=== PATIENT | female | born 1950 | race Caucasian/White ===

== ENCOUNTER → 2016-12-13 | Outpatient (CLI) | payer MEDICARE, BC ==
[2016-12-13 08:39] LABS: CHLORIDE,CL 106 mmol/L (98-110); SODIUM,NA 141 mmol/L (136-146)
== END | disposition home or self-care (01) ==
LOC: MW.CHFP 07:52
PROVIDERS: ATTEND Nurse Practitioner Family
DX: E78.00 Pure hypercholesterolemia, unspecified (principal)
CPT/HCPCS: 36415; 80053; 80061; 84443

== ENCOUNTER → 2016-12-14 | Outpatient (CLI) | payer MEDICARE, BC | LOC: MW.CHFP 09:23 | PROVIDERS: ATTEND Nurse Practitioner Family | DX: Z00.00 Encounter for general adult medical examination without abnormal findings (principal); I10 Essential (primary) hypertension; E78.00 Pure hypercholesterolemia, unspecified; Z72.0 Tobacco use; Z23 Encounter for immunization | CPT/HCPCS: 36415; 86803; 90670; 99214; G0009 ==

== ENCOUNTER 2017-07-22 11:00 | Day surgery (SDC) | payer MEDICARE, BC ==
[~2017-07-22 11:00] MED LIST: Lactated Ringers 1,000 ML IV SCH
[2017-07-22] MEDS ORDERED: fentaNYL 100 MCG/2 ML SDV ONE (11:56)
[2017-07-22] MEDS ORDERED: Propofol 200 MG/20 ML SDV ONE (11:56)
[2017-07-22] MEDS ORDERED: Lidocaine 2% 5 ML SDV ONE (11:56)
[2017-07-22] MEDS ORDERED: Midazolam 1 MG/ML 2 ML SDV ONE (12:12)
--- NOTE | 2017-07-22 12:21 | PCM.PREANE ---
Preanesthetic Assessment - Anesthesia/Transfusion/Family Hx Anesthesia History: Prior Anesthesia Without Reaction Family History of Anesthesia Reaction: No Transfusion History: No Prior Transfusion(s) Intubation History: Unknown - Review of Systems General: No Symptoms Pulmonary: No Symptoms Cardiovascular: No Symptoms Gastrointestinal: No Symptoms, Other (polypectomy 5 years ago) Neurological: No Symptoms Other: Reports: None - Physical Assessment O2 Sat by Pulse Oximetry: 95 Respiratory Rate: 16 Vital Signs: Last Vital Signs Temp 36.5 C 07/22/17 12:10 Pulse 81 07/22/17 12:10 Resp 16 07/22/17 12:10 BP 118/101 H 07/22/17 12:10 Pulse Ox 95 07/22/17 12:10 Height: 1.63 m Weight: 68.946 kg ASA Class: 2 Mental Status: Alert & Oriented x3 Airway Class: Mallampati = 2 Dentition: Reports: Normal Dentition, [place](s) (x2 upper front), [place] (right upper (fixed)) Thyro-Mental Finger Breadths: 3 Mouth Opening Finger Breadths: 2 ROM/Head Extension: Limited/Partial Lungs: Clear to Auscultation, Normal Respiratory Effort Cardiovascular: Regular Rate, Regular Rhythm - Allergies Allergies/Adverse Reactions: Allergies Allergy/AdvReac Type Severity Reaction Status Date / Time No Known Allergies Allergy Verified 03/25/14 08:47 - Blood Blood Available: No - Anesthesia Plan Pre-Op Medication Ordered: None - Acknowledgements Anesthesia Type Planned: MAC Pt an Appropriate Candidate for the Planned Anesthesia: Yes Alternatives and Risks of Anesthesia Discussed w Pt/Guardian: Yes Pt/Guardian Understands and Agrees with Anesthesia Plan: Yes PreAnesthesia Questionnaire Cardiovascular History: Reports: High Cholesterol, Hypertension Gastrointestinal History: Reports: Colon Polyp Genitourinary History: Reports: None ELECTROTHERAPIST History: Reports: Musculoskeletal History: Reports: Fracture Other Musculoskeletal History: hx fx wrist - Past Surgical History Head Surgeries/Procedures: Reports: None HEENT Surgical History: Reports: Cataract Surgery, Other (See Below) Other HEENT Surgeries/Procedures: surgery for cleft palate at 3 yers of age GI Surgical History: Reports: Colonoscopy (' with single polyp found) Female Surgical History: Reports: Section (x2), Tubal Ligation - SUBSTANCE USE Smoking Status *Q: Current Every Day Smoker (08/10 ppd) Recreational Drug Use History: No - HOME MEDS Home Medications: Home Meds Ezetimibe [Zetia] 10 mg PO BEDTIME 07/20/17 [History] Lisinopril/Hydrochlorothiazide [Lisinopril-Hctz 20-25 mg Tab] 1 tab PO DAILY [History] - CURRENT (IN HOUSE) MEDS Current Meds: Current Medications Lactated Ringer's (Ringers, Lactated) 1,000 mls @ 125 mls/hr IV ASDIRECTED CONSUELO Last Admin: 07/22/17 12:09 Dose: 125 mls/hr Discontinued Medications Fentanyl (Sublimaze) Confirm Administered Dose 100 mcg .ROUTE .STK-MED ONE Stop: 07/22/17 11:57 Lidocaine (Xylocaine-Mpf 2%) Confirm Administered Dose 5 ml .ROUTE .STK-MED ONE Stop: 07/22/17 11:57 Midazolam HCl (Versed 1 Mg/Ml) Confirm Administered Dose 2 mg .ROUTE .STK-MED ONE Stop: 07/22/17 12:13 Propofol (Diprivan 20 Ml) Confirm Administered Dose 400 mg .ROUTE .STK-MED ONE Stop: 07/22/17 11:57
--- NOTE | 2017-07-22 13:22 | PCM.OPNOTE ---
- General Post-Op/Procedure Note Date of Surgery/Procedure: 07/22/17 Operative Procedure(s): Colonoscopy with biopsy ascending colon mass Pre Op Diagnosis: Personal history of colon polyps Post-Op Diagnosis: Ascending colon lipoma Anesthesia Technique: MAC (ASA II) Primary Surgeon: Jeferson Medrano Condition: Good Free Text/Narrative:: Dictation [id number] CPT CODE 82994
[2017-07-22] MEDS ORDERED: Lactated Ringers 1,000 ML IV SCH (13:30)
--- NOTE | 2017-07-22 19:06 | OR ---
SURGEON: Jeferson Medrano M.D. DATE OF PROCEDURE: 07/22/2017 OPERATION PERFORMED: Colonoscopy with biopsy of ascending colon. ANESTHESIA: MAC. ASA CLASSIFICATION: II. PREOPERATIVE DIAGNOSIS: Personal history of colon polyps. POSTOPERATIVE DIAGNOSIS: Ascending colon mass, probable lipoma. DESCRIPTION OF PROCEDURE: The patient was taken to the endoscopy room, and positioned on the endoscopy table in the left lateral decubitus position. Time-out was called for appropriate identification of the patient and procedure. Monitored anesthesia care was provided. The colonoscope was inserted into the rectum and advanced with minimal difficulty to the cecum. The cecum was identified by internal landmarks and external pressure. The colonoscope was retroflexed in the cecum to visualize the ascending colon from below, then straightened, and slowly withdrawn. The ascending colon does demonstrate what appears to be a submucosal lipoma. Biopsies of the mucosa were obtained. No significant bleeding was noted. The lesion was quite soft when biopsied. The remainder of the ascending colon, hepatic flexure, transverse colon, splenic flexure, descending colon, sigmoid colon, and rectum showed no tumors, polyps, diverticula, or angiodysplastic changes. The colonoscope, having been withdrawn to the rectum, was now retroflexed to visualize the anal orifice from above. No other tumors or polyps were seen, and there were no acute hemorrhoidal changes. The colonoscope was then straightened, the rectum aspirated, and the colonoscope removed. CONDITION: The patient tolerated the procedure well, and was taken to recovery room in stable condition. GOYO / MARYLU /[id number]
== END 2017-07-22 13:50 | disposition home or self-care (01) ==
LOC: MW.SDS 11:00
PROVIDERS: ATTEND Surgery
DX: D17.79 Benign lipomatous neoplasm of other sites (principal); E78.00 Pure hypercholesterolemia, unspecified; I10 Essential (primary) hypertension; F17.200 Nicotine dependence, unspecified, uncomplicated; Z88.8 Allergy status to other drugs, medicaments and biological substances; Z79.899 Other long term (current) drug therapy; Z98.49 Cataract extraction status, unspecified eye; Z98.51 Tubal ligation status; Z86.010 Personal history of colon polyps; Z98.890 Other specified postprocedural states; Z82.49 Family history of ischemic heart disease and other diseases of the circulatory system; Z83.3 Family history of diabetes mellitus; Z80.0 Family history of malignant neoplasm of digestive organs
CPT/HCPCS: 45380; J2250; J3010; J7120; 00810; 88305; J2704

== ENCOUNTER 2025-03-11 07:55 | Day surgery (SDC) | payer MEDICARE, BC ==
[2025-03-11] MEDS: Lactated Ringers 1,000 ML IV SCH (08:27)
[2025-03-11] MEDS ORDERED: Propofol 200 MG/20 ML SDV ONE (08:33)
[2025-03-11] MEDS ORDERED: Lactated Ringers 1,000 ML IV SCH (09:30)
== END 2025-03-11 10:00 | disposition home or self-care (01) ==
LOC: MW.SDS 07:55
PROVIDERS: ATTEND Surgery
DX: Z12.11 Encounter for screening for malignant neoplasm of colon (principal); D17.5 Benign lipomatous neoplasm of intra-abdominal organs; I10 Essential (primary) hypertension; F17.200 Nicotine dependence, unspecified, uncomplicated; Z80.0 Family history of malignant neoplasm of digestive organs; Z88.8 Allergy status to other drugs, medicaments and biological substances; Z79.899 Other long term (current) drug therapy; Z86.0101 Personal history of adenomatous and serrated colon polyps
CPT/HCPCS: G0105; J2704; J7120; J2003